=== PATIENT | female | born 1965 | race Caucasian/White ===

== ENCOUNTER 2022-10-17 17:38 | Emergency (ER) | payer OTHER, SELFPAY ==
[2022-10-17 17:41] VITALS: BP 186/99; PULSE 121; RESP 20; TEMP 36.7; O2SAT 97; BMI 28.3
--- NOTE | 2022-10-17 17:47 | ED.SKABFB ---
HPI - Skin/Abscess/Foreign Bdy General Chief complaint: Animal Bite <ELIZABETH Moreland Last Filed: 10/17/22 17:50> Stated complaint: dog bite on face <ELIZABETH Moreland Last Filed: 10/17/22 17:50> Time Seen by Provider: 10/17/22 17:53 <ELIZABETH Moreland Last Filed: 10/17/22 17:50> Source: patient <ELIZABETH Lowe Last Filed: 10/17/22 18:45> Mode of arrival: ambulatory <ELIZABETH Lowe Last Filed: 10/17/22 18:45> Limitations: no limitations <ELIZABETH Lowe Last Filed: 10/17/22 18:45> History of Present Illness HPI narrative: This is a 57-year-old female presenting with dog bite to right cheek, happened just prior to arrival. Patient reports this was a friend's dog was up-to-date on immunizations including rabies. She tells me she does not think her tetanus shot is up-to-date. Denies numbness and tingling. Reports some bleeding, area was cleaned and bacitracin was applied to the area, dressing in place. Denies headache, vision changes, dizziness and weakness. <ELIZABETH Lowe Last Filed: 10/17/22 18:45> Related Data Home medications: Previous Rx's Medication Instructions Recorded amoxicillin 875 mg-potassium 1 tab PO BID 10 days #20 tabs 10/17/22 clavulanate 125 mg tablet <ELIZABETH Moreland Last Filed: 10/17/22 17:50> Allergies/Adverse reactions: Allergies Allergy/AdvReac Type Severity Reaction Status Date / Time No Known Allergies Allergy Verified 10/17/22 17:51 <ELIZABETH Moreland Last Filed: 10/17/22 17:50> Review of Systems Review of Systems: Constitutional : No Weight loss, No Fever, No Chills, No Fatigue, No Malaise ENT/Mouth : No sore throat, No Rhinorrhea Eyes: No Eye Pain, No Swelling, No Redness Cardiovascular : No Chest Pain, No SOB, No Dyspnea on Exertion, No Orthopnea, No Edema, No Palpitations Respiratory : No Cough, No Sputum, No Wheezing Gastrointestinal : No Nausea, No Vomiting, No Diarrhea, No Constipation, No abdominal Pain, No Hematochezia, No Melena Genitourinary : No Dysuria, No Urinary Frequency, No Hematuria, Musculoskeletal : No joint pain, No Myalgias, No Joint Swelling Skin : No Skin Lesions, No rash, + dog bite to face Neuro : No Weakness, No Numbness, No Dizziness, No Headache Psych : No Anxiety/Panic, No Depression All other systems reviewed and are negative <ELIZABETH Lowe - Last Filed: 10/17/22 18:45> Yes all other systems are reviewed and are negative <ELIZABETH Lowe - Last Filed: 10/17/22 18:45> [facility] Past Medical History Attestation statement: The following information was validated with the patient. <ELIZABETH Lowe - Last Filed: 10/17/22 18:45> Source: old records reviewed and nursing notes reviewed <ELIZABETH Lowe - Last Filed: 10/17/22 18:45> Physical Exam Vital Signs: Vital Signs: Last Vital Signs Temp 98.1 F 10/17/22 17:41 Pulse 121 H 10/17/22 17:41 Resp 20 10/17/22 17:41 BP 186/99 H 10/17/22 17:41 Pulse Ox 97 10/17/22 17:41 O2 Del Method Room Air 10/17/22 17:41 BMI result Body Mass Index 28.3 <ELIZABETH Moreland - Last Filed: 10/17/22 17:50> Vital Signs: Last Vital Signs Temp 98.1 F 10/17/22 17:41 Pulse 121 H 10/17/22 17:41 Resp 20 10/17/22 17:41 BP 186/99 H 10/17/22 17:41 Pulse Ox 97 10/17/22 17:41 O2 Del Method Room Air 10/17/22 17:41 BMI result Body Mass Index 28.3 vss <ELIZABETH Lowe - Last Filed: 10/17/22 18:45> Appearance: Alert.? Oriented X3.? No acute distress.? Head: Normocephalic, atraumatic, no step-offs or deformities Eyes: Pupils equal, round and reactive to light.? CVS: Normal heart rate and rhythm.? Pulses normal.? Respiratory: No respiratory distress.? Breath sounds normal.? Abdomen: Soft and nontender.? Skin: Skin warm and dry.? Normal skin color.? Normal skin turgor.?+ dog bite to right cheeck mostly abrasions, however one puncture wound next to R angle of lip ( images below) Extremities: No lower extremity edema.? No calf ttp. 5/5 strength to bilateral upper and lower extremities Back: No midline tenderness, no C-spine tenderness, full range of motion, no CVA tenderness bilaterally Neuro: Oriented X 3.? No motor deficit.? No sensory deficit. CN 2-12 intact <ELIZABETH Lowe - Last Filed: 10/17/22 18:45> Course Course Course Narrative: This is an RME: Additional HPI, ROS, PE not included below will be deferred to primary provider. This is a [id number]-female presenting to the emergency department with complaint of right facial wound status post dog bite on her right cheek which occurred today at 1600. She reports that her friend's dog who is up to date with its immunizations suddenly jumped up and bit her on the right side of her face. She is unsure when her last tetanus immunization was. Pulse 121, 186/99, patient anxious appearing. Right cheek with multiple puncture wounds. Likely going to require suture repair. Unsure of last tetanus. <ELIZABETH Moreland - Last Filed: 10/17/22 17:50> Reevaluation(s) Reevaluation #1: Spoke to Dr. Blandon trauma states this is not a trauma, and would have to speak to the ED for possible transfer however. [facility] closed to plastic transfers at this time. <ELIZABETH Lowe - Last Filed: 10/17/22 18:45> Time: 18:26 <ELIZABETH Lowe - Last Filed: 10/17/22 18:45> Reevaluation #2: Spoke to Dr. Purcell who accepts transfer however he states being seen by plastics is not guaranteed and P, and it is up to emergency department staff at [facility] whether not patient requires plastics. Will make this clear to the patient prior to transfer.. <ELIZABETH Lowe - Last Filed: 10/17/22 18:45> Time: 18:28 <ELIZABETH Lowe - Last Filed: 10/17/22 18:45> Reevaluation #3: I explained to patient that she was accepted at [facility] however they cannot guarantee that she will get seen by Plastic surgery. Patient states she does not want stitches to her face at all, and she will not go to [facility], will discharge her home with antibiotics. I do not feel as though there is need for closure at this time, ran this case by my attending who agrees. I also ran this case by another AP who also agrees that there is no need for suturing at this time. Mostly abrasions bacitracin applied and a sterile dressing placed overlying it. Educated her to ice and to follow up with Plastic surgery. Educated on worsening signs and symptoms and when to return the emergency department. Educated patient on diagnosis and treatment plan, answered all question, patient verbalizes understanding. At this time patient will be discharged home, advised to return with new or worsening symptoms. Educated on worrisome signs and symptoms and when to return. At this time I feel comfortable discharge home. <ELIZABETH Lowe - Last Filed: 10/17/22 18:45> Time: 18:44 <ELIZABETH Lowe - Last Filed: 10/17/22 18:45> Medications Administered Discontinued Medications Generic Name Dose Route Start Last Admin Trade Name Freq PRN Reason Stop Dose Admin Bacitracin 1 appl 10/17/22 18:11 10/17/22 18:18 Bacitracin Oint 0.9 Gm Packet TOPICAL 10/17/22 18:12 1 appl ONCE ONE Administration Protocol Diphtheria/Tetanus/Acell Pertussis 0.5 ml 10/17/22 17:51 10/17/22 18:19 Diphth,Pertus(Acell),Tet Adult 0.5 Ml Syringe IM 10/17/22 17:52 0.5 ml .ONCE ONE Administration <ELIZABETH Moreland - Last Filed: 10/17/22 17:50> Medications Administered Discontinued Medications Generic Name Dose Route Start Last Admin Trade Name Freq PRN Reason Stop Dose Admin Bacitracin 1 appl 10/17/22 18:11 10/17/22 18:18 Bacitracin Oint 0.9 Gm Packet TOPICAL 10/17/22 18:12 1 appl ONCE ONE Administration Protocol Diphtheria/Tetanus/Acell Pertussis 0.5 ml 10/17/22 17:51 10/17/22 18:19 Diphth,Pertus(Acell),Tet Adult 0.5 Ml Syringe IM 10/17/22 17:52 0.5 ml .ONCE ONE Administration <ELIZABETH Lowe Last Filed: 10/17/22 18:45> Medical Decision Making Medical Decision Making [facility] Narrative: 1811 57-year-old female presents with dog bite to right cheek, unsure of tetanus status however dog is up-to-date on immunizations Physical exam with dog bite to right cheek. There is 1 puncture wound next to the right angle of lip, that is currently bleeding, the rest appear to be abrasions. No signs of through and through. Plan at this time will have my attending evaluate, may benifit from one suture. My attending evaluated patient and agrees could benefit from 1 suture at most however patient adamantly requesting that this be done by plastic surgeon not here. I explained to her I would reach out to [facility] however unsure if they are open to transfers. I also explained to her if they are closed to transfer she can walk into the emergency department to be seen there. <ELIZABETH Lowe Last Filed: 10/17/22 18:45> Differential Diagnosis Differential Diagnoses: The differential diagnosis associated with the presentation includes <ELIZABETH Lowe Last Filed: 10/17/22 18:45> There is 1 puncture wound next to the right angle of lip, that is currently bleeding, the rest appear to be abrasions. No signs of through and through. <ELIZABETH Lowe Last Filed: 10/17/22 18:45> Admission/Observation Consideration of admission/observation: Escalation of care including admission/observation considered <ELIZABETH Lowe Last Filed: 10/17/22 18:45> Unlikely <ELIZABETH Lowe Last Filed: 10/17/22 18:45> Prescription Management I considered prescription management with: Antibiotic <ELIZABETH Lowe - Last Filed: 10/17/22 18:45> Core Measures AMI core measures followed: Yes <ELIZABETH Lowe Last Filed: 10/17/22 18:45> Measure exclusions: not indicated <ELIZABETH Lowe - Last Filed: 10/17/22 18:45> Critical Care Time Critical Care Time Critical Care Time: Yes <ELIZABETH Lowe Last Filed: 10/17/22 18:45> Total Critical Care Time: 35 <ELIZABETH Lowe - Last Filed: 10/17/22 18:45> Attestation: I attest to this time spent taking care of the patient, obtaining history, physical, reviewing labs, imaging, speaking to my attending, speaking to specialist. <ELIZABETH Lowe - Last Filed: 10/17/22 18:45> Discharge Plan Discharge Clinical Impression: Dog bite <ELIZABETH Moreland Last Filed: 10/17/22 17:50> Patient Disposition: Home, Self-Care <ELIZABETH Moreland Last Filed: 10/17/22 17:50> Instructions: Animal Bite (ED) <ELIZABETH Moreland Last Filed: 10/17/22 17:50> Additional Instructions: Take your medications as prescribed. If you were prescribed antibiotics today, it is important that you take your medication to their entirety, do not skip any doses, do not finish them early. Follow-up with your primary care provider this week. Return to the emergency department with new or worsening symptoms. Such as fevers, chills, chest pain, shortness of breath, nausea, vomiting, dizziness, headache, vision changes, lethargy In case of emergency call 911 Please apply ice to the affected area. Sleep with your head upright to help decrease swelling. Follow-up with [facility] plastic surgery [phone] Return with any signs of infection such as worsening redness, swelling, fevers/chills, pus or drainage from the site. Please apply bacitracin or topical antibiotic ointment to the affected area and keep covered for a few days. <ELIZABETH Moreland Last Filed: 10/17/22 17:50> Prescriptions: New amoxicillin-pot clavulanate 875-125 mg tablet 1 tab PO BID 10 Days Qty: 20 0RF <ELIZABETH Moreland - Last Filed: 10/17/22 17:50> Referrals: Physician,Nonstaff [Primary Care Provider] - 2 days <ELIZABETH Moreland - Last Filed: 10/17/22 17:50> Stand Alone Forms: Work/School Release <ELIZABETH Moreland - Last Filed: 10/17/22 17:50>
[2022-10-17] MEDS: Bacitracin Oint 0.9 GM PACKET 1 APPL TOPICAL (18:18)
[2022-10-17] MEDS: Diphth,Pertus(ACell),Tet Adult 0.5 ML SYRINGE IM (18:19)
--- NOTE | 2022-10-17 18:32 | PC.NURSE ---
Patient presents after dog bite to the face. Patient with noticeable bite to the right side of face. Patient states that this is her daughters dog and that the rabies vaccines are up to date on the dog. Patient at this time is refusing to have a rabies vaccine administered to her. Wound cleaned and bacitracin applied to the area and covered with dry clean dressing.
[2022-10-17] MEDS: Amoxicillin/Potassium Clav 875 MG TABLET PO (18:40)
== END 2022-10-17 18:59 | disposition home or self-care (01) ==
PROVIDERS: Emergency Provider Internal Medicine
DX: S01.451A Open bite of right cheek and temporomandibular area, initial encounter (principal); W54.0XXA Bitten by dog, initial encounter; Y93.89 Activity, other specified; Y92.019 Unspecified place in single-family (private) house as the place of occurrence of the external cause; Y99.9 Unspecified external cause status
CPT/HCPCS: 90471; 90715; 99282; 99284